=== PATIENT | male | born 1975 | race Hispanic/Latino ===

== ENCOUNTER 2021-04-20 14:42 | Inpatient (IN) | payer SELFPAY ==
[2021-04-20 15:32] VITALS: BMI 34.2
[2021-04-20] MEDS ORDERED: Benzonatate 100 MG CAP PO PRN (18:22)
[2021-04-20] MEDS ORDERED: Senokot S 8.6-50 MG TAB PO PRN (18:23)
[2021-04-20] MEDS ORDERED: Guaifenesin DM 100-10/5 ML UDCUP PO PRN (18:23)
[2021-04-20] MEDS ORDERED: Bisacodyl 5 MG TAB PO PRN (18:23)
[2021-04-20] MEDS ORDERED: hydrALAZINE 20 MG/ML VIAL SLOW IVP PRN (18:27)
[2021-04-20] MEDS ORDERED: Enoxaparin Sodium 40 MG/0.4 ML SYRINGE SC SCH (19:00)
[2021-04-20] MEDS ORDERED: Cholecalciferol (Vitamin D3) 400 UNITS TAB PO SCH (19:00)
[2021-04-20] MEDS ORDERED: Ascorbic Acid 500 mg Chewable Tablet PO SCH (19:00)
[2021-04-20] MEDS ORDERED: Zinc Sulfate 220 MG CAP PO SCH (19:15)
[2021-04-20] MEDS: Azithromycin 500 MG in Sodium Chloride 0.9% 250 ML 250 ML IVPB SCH (20:13)
[2021-04-20] MEDS: Nicotine 21 MG PATCH TD SCH (20:14)
[2021-04-20] MEDS: Dexamethasone 10 MG/ML VIAL SLOW IVP SCH (20:14)
[2021-04-20] MEDS: Famotidine/PF 20 mg/2ml Vial SLOW IVP SCH (20:14)
[2021-04-20] MEDS: cefTRIAXone\\ROCEPHIN 2 GM in Sodium Chloride 0.9% 100 ML IVPB SCH (21:34)
[2021-04-20] MEDS: Albuterol 200 PUFF (6.7GM INHALER) INH PRN (23:43)
[2021-04-21] MEDS ORDERED: Pharmacy to Dose REMDESIVIR IVPB PRN (00:45)
[2021-04-21 03:08] LABS: Troponin I Less than 0.010 ng/mL (< 0.028)
[2021-04-21] MEDS: Acetaminophen 325 MG TAB PO PRN ×2 (05:30→21:17)
[2021-04-21 05:34] LABS: #Lymphocytes 0.6 thou/uL (1.20-3.40); #Monocytes 0.3 thou/uL (0.11-0.59); #Neutrophils 5.3 thou/uL (1.40-6.50); %Basophils 0.1 % (0.0-1.0); %Eosinophils 0.1 % (0.0-10.0); %Lymphocytes 9.9 % (21.0-51.0); %Monocytes 4.6 % (0.0-10.0); %Neutrophils 85.2 % (42.0-75.0); Hemoglobin 14.1 g/dL (14.0-18.0); Mean Corpuscular Hemoglobin 32.3 pg (27.0-31.0); Mean Corpuscular Volume 95.2 fL (78.0-98.0); Mean Platelet Volume 7.7 fL (7.4-10.4); Platelet Count 223 thou/uL (130-400); RBC Distribution Width 12.1 % (11.5-14.5); Red Blood Cell (RBC) Count 4.35 mill/uL (4.70-6.10); White Blood Cell (WBC) Count 6.2 thou/uL (4.8-10.8)
[2021-04-21 05:54] LABS: ALT (SGPT) 32 U/L (8-55); AST (SGOT) 32 U/L (5-34); Albumin 3.5 g/dL (3.5-5.0); Alkaline Phosphatase 54 U/L (40-110); Anion Gap 13 mmol/L (10-20); BUN (Urea Nitrogen) 13 mg/dL (8.9-20.6); Bilirubin, Total 0.2 mg/dL (0.2-1.2); Calc. Creatinine Clearance 158 mL/min (70-130); Calcium 8.6 mg/dL (7.8-10.44); Carbon Dioxide 22 mmol/L (22-29); Chloride 104 mmol/L (98-107); Globulin 3.4 g/dL (2.4-3.5); Glucose 125 mg/dL (70-105); Potassium 4.3 mmol/L (3.5-5.1); Protein, Total 6.9 g/dL (6.0-8.3); Sodium 135 mmol/L (136-145); Troponin I Less than 0.010 ng/mL (< 0.028)
[2021-04-21] MEDS: Ascorbic Acid 500 mg Chewable Tablet PO SCH (08:16)
[2021-04-21] MEDS: Enoxaparin Sodium 40 MG/0.4 ML SYRINGE SC SCH (08:16)
[2021-04-21] MEDS: Dexamethasone 10 MG/ML VIAL SLOW IVP SCH ×2 (08:16→20:29)
[2021-04-21] MEDS: Cholecalciferol (Vitamin D3) 400 UNITS TAB PO SCH (08:16)
[2021-04-21] MEDS: Famotidine/PF 20 mg/2ml Vial SLOW IVP SCH ×2 (08:17→20:29)
[2021-04-21] MEDS: Zinc Sulfate 220 MG CAP PO SCH (08:18)
[2021-04-21] MEDS ORDERED: Iopamidol-370 76% 500 ML 1 ML ONE (09:38)
[2021-04-21] MEDS ORDERED: REMDESIVIR 200 MG in Sodium Chloride 0.9% 250 ML 210 ML IV SCH (10:00)
[2021-04-21] MEDS: Ondansetron PF 4 MG/2 ML Vial IVP PRN ×2 (10:17→18:45)
[2021-04-21] MEDS: Azithromycin 500 MG in Sodium Chloride 0.9% 250 ML 250 ML IVPB SCH (17:38)
[2021-04-21] MEDS: Nicotine 21 MG PATCH TD SCH (18:16)
[2021-04-21] MEDS ORDERED: hydrOXYzine 25 MG TAB PO SCH (20:15)
[2021-04-21] MEDS: cefTRIAXone\\ROCEPHIN 2 GM in Sodium Chloride 0.9% 100 ML IVPB SCH (20:28)
[2021-04-22] MEDS ORDERED: hydrOXYzine 25 MG TAB PO SCH ×2 (03:45→14:00)
[2021-04-22] MEDS: REMDESIVIR 100 MG in Sodium Chloride 0.9% 250 ML 230 ML IV SCH (09:27)
[2021-04-22] MEDS: Ascorbic Acid 500 mg Chewable Tablet PO SCH (09:28)
[2021-04-22] MEDS: Cholecalciferol (Vitamin D3) 400 UNITS TAB PO SCH (09:28)
[2021-04-22] MEDS: Enoxaparin Sodium 40 MG/0.4 ML SYRINGE SC SCH (09:28)
[2021-04-22] MEDS: Dexamethasone 10 MG/ML VIAL SLOW IVP SCH ×2 (09:29→20:34)
[2021-04-22] MEDS: Famotidine/PF 20 mg/2ml Vial SLOW IVP SCH ×2 (09:29→20:34)
[2021-04-22] MEDS: Zinc Sulfate 220 MG CAP PO SCH (09:29)
[2021-04-22] MEDS: Albuterol 200 PUFF (6.7GM INHALER) INH PRN (14:00)
[2021-04-22] MEDS: Nicotine 21 MG PATCH TD SCH (18:27)
[2021-04-22] MEDS: Azithromycin 500 MG in Sodium Chloride 0.9% 250 ML 250 ML IVPB SCH (18:27)
[2021-04-22] MEDS: cefTRIAXone\\ROCEPHIN 2 GM in Sodium Chloride 0.9% 100 ML IVPB SCH (20:33)
[2021-04-23] MEDS: ALPRAZolam 0.25 MG TAB PO PRN ×2 (03:07→16:44)
[2021-04-23] MEDS: Albuterol 200 PUFF (6.7GM INHALER) INH PRN (03:11)
[2021-04-23] MEDS: Enoxaparin Sodium 40 MG/0.4 ML SYRINGE SC SCH (08:24)
[2021-04-23] MEDS: Dexamethasone 10 MG/ML VIAL SLOW IVP SCH ×2 (08:25→20:15)
[2021-04-23] MEDS: Zinc Sulfate 220 MG CAP PO SCH (08:25)
[2021-04-23] MEDS: Cholecalciferol (Vitamin D3) 400 UNITS TAB PO SCH (08:25)
[2021-04-23] MEDS: Ascorbic Acid 500 mg Chewable Tablet PO SCH (08:29)
[2021-04-23 11:17] LABS: Prothrombin Time 13.4 sec (12.0-14.7)
[2021-04-23] MEDS: REMDESIVIR 100 MG in Sodium Chloride 0.9% 250 ML 230 ML IV SCH (12:22)
[2021-04-23] MEDS: Famotidine/PF 20 mg/2ml Vial SLOW IVP SCH (12:23)
[2021-04-23] MEDS ORDERED: FLU VACC QS2021-22(6MOS UP)/PF 60 MCG/0.5 ML SYRINGE IM ONE (16:15)
[2021-04-23] MEDS: Nicotine 21 MG PATCH TD SCH (18:30)
[2021-04-24] MEDS: Acetaminophen 325 MG TAB PO PRN (03:30)
[2021-04-24] MEDS: ALPRAZolam 0.25 MG TAB PO PRN ×2 (03:30→23:51)
[2021-04-24 05:52] LABS: INR-International Normal Ratio 1.1; Prothrombin Time 13.8 sec (12.0-14.7)
[2021-04-24 06:13] LABS: ALT (SGPT) 148 U/L (8-55); AST (SGOT) 67 U/L (5-34)
[2021-04-24] MEDS: Enoxaparin Sodium 40 MG/0.4 ML SYRINGE SC SCH (08:20)
[2021-04-24] MEDS: Ascorbic Acid 500 mg Chewable Tablet PO SCH (08:21)
[2021-04-24] MEDS: Cholecalciferol (Vitamin D3) 400 UNITS TAB PO SCH (08:21)
[2021-04-24] MEDS: Zinc Sulfate 220 MG CAP PO SCH (08:21)
[2021-04-24] MEDS: Dexamethasone 10 MG/ML VIAL SLOW IVP SCH ×2 (08:21→19:50)
[2021-04-24] MEDS: REMDESIVIR 100 MG in Sodium Chloride 0.9% 250 ML 230 ML IV SCH (10:32)
[2021-04-24] MEDS: Albuterol 200 PUFF (6.7GM INHALER) INH PRN (18:22)
[2021-04-24] MEDS: Nicotine 21 MG PATCH TD SCH (18:39)
[2021-04-25 05:57] LABS: Prothrombin Time 12.8 sec (12.0-14.7)
[2021-04-25 06:08] LABS: ALT (SGPT) 114 U/L (8-55); AST (SGOT) 29 U/L (5-34)
[2021-04-25] MEDS: Ascorbic Acid 500 mg Chewable Tablet PO SCH (08:37)
[2021-04-25] MEDS: Enoxaparin Sodium 40 MG/0.4 ML SYRINGE SC SCH (08:37)
[2021-04-25] MEDS: Dexamethasone 10 MG/ML VIAL SLOW IVP SCH ×2 (08:37→20:13)
[2021-04-25] MEDS: Zinc Sulfate 220 MG CAP PO SCH (08:37)
[2021-04-25] MEDS: Cholecalciferol (Vitamin D3) 400 UNITS TAB PO SCH (08:37)
[2021-04-25] MEDS: REMDESIVIR 100 MG in Sodium Chloride 0.9% 250 ML 230 ML IV SCH (08:42)
[2021-04-25] MEDS: ALPRAZolam 0.25 MG TAB PO PRN (12:11)
[2021-04-25] MEDS: Nicotine 21 MG PATCH TD SCH (19:54)
[2021-04-26 05:36] LABS: Prothrombin Time 13.5 sec (12.0-14.7)
[2021-04-26 05:51] LABS: ALT (SGPT) 94 U/L (8-55); AST (SGOT) 23 U/L (5-34)
[2021-04-26] MEDS: Cholecalciferol (Vitamin D3) 400 UNITS TAB PO SCH (08:35)
[2021-04-26] MEDS: Zinc Sulfate 220 MG CAP PO SCH (08:35)
[2021-04-26] MEDS: Dexamethasone 10 MG/ML VIAL SLOW IVP SCH (08:35)
[2021-04-26] MEDS: Ascorbic Acid 500 mg Chewable Tablet PO SCH (08:35)
[2021-04-26] MEDS: Enoxaparin Sodium 40 MG/0.4 ML SYRINGE SC SCH (08:36)
[2021-04-26 12:02] VITALS: BP 122/63; TEMP 98.2
== END 2021-04-26 13:20 | disposition home or self-care (01) | DRG 177 ==
LOC: T4-B 14:47 → 2SW 04-21 06:32
PROVIDERS: ADMIT Internal Medicine; ATTEND Internal Medicine
PROC: 8E0ZXY6 Isolation (ICD-10-PCS; principal; 2021-04-20)
PROC: 3E0333Z Introduction of Anti-inflammatory into Peripheral Vein, Percutaneous Approach (ICD-10-PCS; 2021-04-20)
PROC: XW033E5 Introduction of Remdesivir Anti-infective into Peripheral Vein, Percutaneous Approach, New Technology Group 5 (ICD-10-PCS; 2021-04-22)
DX: U07.1 COVID-19 (principal); J12.82 Pneumonia due to coronavirus disease 2019; J96.01 Acute respiratory failure with hypoxia; Z23 Encounter for immunization; F41.9 Anxiety disorder, unspecified; I10 Essential (primary) hypertension; K21.9 Gastro-esophageal reflux disease without esophagitis; F17.210 Nicotine dependence, cigarettes, uncomplicated; R07.81 Pleurodynia; Z79.899 Other long term (current) drug therapy
CPT/HCPCS: 36415; 71275; 80053; 82728; 84450; 84460; 84484; 85025; 85610; 86140; J0456; J0696; J1100; J1650; J2405; J3490; J7050; Q9967; S0028

== ENCOUNTER 2021-05-02 00:26 | Observation (INO) | payer SELFPAY ==
[2021-05-02] MEDS ORDERED: Morphine 4 MG/ML VIAL SLOW IVP PRN (01:11)
[2021-05-02] MEDS ORDERED: Ondansetron PF 4 MG/2 ML Vial IVP PRN ×2 (01:15→08:29)
[2021-05-02] MEDS ORDERED: Ondansetron ODT 4 MG TAB SL PRN (01:15)
[2021-05-02 01:32] VITALS: BMI 31.6
[2021-05-02 04:08] LABS: Troponin I Less than 0.010 ng/mL (< 0.028)
[2021-05-02 06:49] LABS: Troponin I Less than 0.010 ng/mL (< 0.028)
[2021-05-02 08:03] VITALS: BP 110/61; TEMP 98
[2021-05-02] MEDS ORDERED: ALPRAZolam 0.25 MG TAB PO PRN (08:29)
[2021-05-02] MEDS ORDERED: Calcium Carbonate 500 MG ChewTAB PO PRN (08:29)
[2021-05-02] MEDS ORDERED: HYDROcodone/Acetaminophen 5/325 mg Tablet PO PRN (08:29)
[2021-05-02] MEDS ORDERED: Acetaminophen 325 MG TAB PO PRN (08:29)
[2021-05-02] MEDS ORDERED: Senokot S 8.6-50 MG TAB PO PRN (08:29)
[2021-05-02] MEDS ORDERED: Bisacodyl 10 MG SUPP PR PRN (08:29)
[2021-05-02] MEDS ORDERED: Guaifenesin DM 100-10/5 ML UDCUP PO PRN (08:29)
[2021-05-02] MEDS ORDERED: Aspirin Chewable 81 MG TAB PO SCH (09:00)
[2021-05-02] MEDS ORDERED: Enoxaparin Sodium 40 MG/0.4 ML SYRINGE SC SCH (09:00)
[2021-05-02] MEDS ORDERED: Regadenoson 0.4 MG/5 ML SYRINGE ONE (09:05)
[2021-05-02 11:25] LABS: Cardiac Risk 8.3 (Less than 4.5)
[2021-05-05] MEDS ORDERED: FLU VACC QS2021-22(6MOS UP)/PF 60 MCG/0.5 ML SYRINGE IM ONE (09:00)
== END 2021-05-02 15:09 | disposition home or self-care (01) ==
LOC: 2SW 01:08
PROVIDERS: ADMIT Student in an Organized Health Care Education/Training Program; ATTEND Internal Medicine
DX: R07.89 Other chest pain (principal); F41.9 Anxiety disorder, unspecified; F31.9 Bipolar disorder, unspecified; E66.9 Obesity, unspecified; Z68.31 Body mass index [BMI] 31.0-31.9, adult; Z86.16 Personal history of COVID-19; Z79.899 Other long term (current) drug therapy
CPT/HCPCS: 36415; 78452; 80061; 84484; 86140; 93017; 96372; A9500; G0378; J1650; J2785

== ENCOUNTER 2024-03-15 13:23 | Outpatient (CLI) | payer OTHER | END 2024-03-15 13:24 | disposition home or self-care (01) | LOC: BICRAD 13:23 | PROVIDERS: ATTEND Family Medicine | DX: M54.40 Lumbago with sciatica, unspecified side (principal) | CPT/HCPCS: 72100 ==